=== PATIENT | male | born 1960 | race Caucasian/White ===

== ENCOUNTER 2016-10-18 16:00 | Emergency (ER) | payer OTHER ==
[~2016-10-18] VITALS: Wt 105.0 kg
[~2016-10-18 16:00] MED LIST: ALBU8.5H5 INH; AZIT250T94 PO; LISI20TA11 PO; PRED20TA PO
[2016-10-18] MEDS ORDERED: KETOROLAC 30 MG INJ IM STA (17:25)
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
[2016-10-18] MEDS ORDERED: HYDR-906 PO (18:46)
[2016-10-18] MEDS ORDERED: IBUP-1542 PO (18:46)
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
[2016-10-18 18:58] VITALS: BP 166/82; PULSE 69; RESP 18; TEMP 98.3
== END 2016-10-18 19:00 | disposition home or self-care (01) ==
LOC: FTE 16:00
DX: M54.42 Lumbago with sciatica, left side (principal); I10 Essential (primary) hypertension; Z04.1 Encounter for examination and observation following transport accident
CPT/HCPCS: 72040; 72100; 96372; J1885; Z7502